=== PATIENT | female | born 1955 | race Caucasian/White ===

== ENCOUNTER → 2018-06-09 | Day surgery (SDC) | payer OTHER ==
[~2018-06-09] MED LIST: LIDOCAINE HCL 2% LOCAL INJ 5 ML SDV VIAL INJ ONE; MIDAZOLAM HCL 2 MG/2 ML VIAL ONE; PROAIR HFA INH8.5 GM INH; PROPOFOL IV EMULSION 10 MG/ML 50 ML VIAL ONE; TRELEGY INH
--- OUTSIDE RECORDS SUMMARY | 2018-06-09 07:14 | XMS REPORT | Encounter Summary ---
Author Organization Unknown Address [address] [place] [address] Phone [phone] Care Team Providers Care Baggage Security Checker Name Role Phone Patrick Bustamante MD 3 [phone] Reason for Visit Medical Complaint Instructions 1. Acute exacerbation of asthma rapid flu (A+B) albuterol sulfate 2.5 mg/3 mL (0.083 %) solution for nebulization call back, wheezing 2. Cigarette smoker 3. Tachycardia Discussion Note Pt is in NAD; Verbalizes understanding of all instructions with no questions at this time. Plan of Care Patient Instructions Based on the nature of your symptoms I recommend transfer to nearest ER immediately for further evaluation and recommendations. Reminders Provider Appointments None recorded. Lab Rapid Flu (A+B) 01/18/2017 [facility] Referral None recorded. Procedures None recorded. Surgeries None recorded. Imaging None recorded. Medications Name Start Date Afluria 7895-5226(PF) 45 mcg (15 mcg x 3)/0.5 mL intramuscular syringe Afluria Quad 1470-6494 (PF) 60 mcg/0.5 mL intramuscular syringe USE DIRECTED albuterol sulfate 2.5 mg/3 mL (0.083 %) solution for nebulization Give 1 inhalation every 20 minutes by nebulizer route as needed amoxicillin 875 mg-potassium clavulanate 125 mg tablet TAKE 1 TABLET BY MOUTH EVERY 12 HOURS DIRECTED FOR 10 DAYS Breo Ellipta 100 mcg-25 mcg/dose powder for inhalation INHALE ONE PUFF BY MOUTH EVERY DAY ujugnrjuxszfmex-cwviyxvgoxfgmwm-TN 2 mg-30 mg-10 mg/5 mL syrup TAKE TWO TEASPOONSFUL BY MOUTH EVERY 4 TO 6 HOURS NEEDED Fluvirin 1220-6177 45 mcg (15 mcg x 3)/0.5 mL intramuscular suspension ADM 0.5ML IM UTD levalbuterol 1.25 mg/3 mL solution for nebulization jfcenrhw-fyjeyzdcc-ywhofmiy 3.5 mg/mL-10,000 unit/mL-0.1% eye drops INSTILL ONE DROP IN LEFT EYE THREE TIMES DAILY DISCONTINUE AFTER 10 DAYS Omnaris 50 mcg nasal spray Pneumovax 23 25 mcg/0.5 mL injection solution ADM 0.5ML IM UTD prednisone 20 mg tablet TAKE 3 TABLETS BY MOUTH EVERY DAY FOR 2 DAYS THEN TAKE 2 TABLETS EVERY DAY FOR 2 DAYS THE TAKE 1 TABLET EVERY DAY FOR 2 DAYS Prevnar 13 (PF) 0.5 mL intramuscular syringe USE DIRECTED ProAir HFA 90 mcg/actuation aerosol inhaler INHALE TWO PUFFS BY MOUTH EVERY 4 TO 6 HOURS NEEDED RETURN TO DR'S OFFICE Spiriva Respimat 2.5 mcg/actuation solution for inhalation INHALE TWO PUFFS BY MOUTH EVERY DAY RETURN TO DR'S OFFICE Medications Administered Name Date albuterol sulfate 2.5 mg/3 mL (0.083 %) solution for nebulization Give 1 inhalation every 20 minutes by nebulizer route as needed [id number] Vitals Height Weight BMI Blood Pressure 5 ft 2 in 94 lbs 17.2 kg/m2 108/68 mm[Hg] Lab Results Date Name Specimen Result Interpretation Description Value Range Status Address Rapid Flu (A+B) Influenza a negative [facility]: [address] [place] [address] Influenza B negative [facility]: [address] [place] [address] Allergies Code Code System Name Reaction Severity Status Onset NKDA Problems Name Status Onset Date Source Acute Upper Respiratory Infection Active Encounter Acute Bronchitis Active Encounter Procedures Date Name Performed by Appendectomy Information not available Removal of Tonsils Information not available Vaccine List Vaccine Type influenza, injectable, quadrivalent 11/09/2015 11/08/2016 pneumococcal conjugate PCV 13 11/08/2016 pneumococcal polysaccharide PPV23 11/09/2015 Social History Smoking Status Current Every Day Smoker Past Encounters 01/18/2017 Acute Exacerbation of Asthma; Cigarette Smoker; Tachycardia Angelica Nicolas, MICROSTRATEGY BI DEVELOPER-C: [address] [place] [address], Ph. History of Present Illness Wheezing / Asthma Reported By: Patient HPI: Symptoms recurrent cough, recurrent wheezing, recurrent shortness of breath, recurrent chest tightness, sputum production. Pattern of symptoms symptoms worse at night, symptoms worse in the morning, continual. Precipitating/Aggravating Factors: smoking patient. Development of disease and treatment progression of disease worse. Family history asthma, allergies. Patient/Family perception of asthma family able to recognize exacerbation, family able to cope with disease, adequate economic resources, sociocultural beliefs support treatment plan Wheezing / Cough Reported By: Patient HPI: Location: chest, nasal/sinus. Quality: congested, dyspnea, tightness, productive cough, colored phlegm, wheezing, can't catch breath, can't get a deep breath. Severity: worsening, moderate. Duration: constant. Onset/Timing: sudden, daily, wakes from sleep. Context: no sick contacts, no foreign travel, smoker, hx of asthma. Modifying factors: inhaler:proair using how often?proair; Breo ellipta BID. Associated Symptoms: no fever, no chills, no sweats, no chest pain, no edema, no heartburn, no significant weight gain, no significant weight loss, no morning cough, no post nasal drip, no sore throat, no nausea, no vomiting, no diarrhea, no rash, no muscle aches, no headache, yellow-green, thick sputum, shortness of breath, wheezing, difficulty breathing at night, fatigue; nasal congestion, rhinorrhea, chest congestion, productive cough, and feeling feverish Review of Systems:ROS as noted in the HPI Review of Systems Basic Reported By: Patient Physical Exam Adult Basic, Adult Female Complete Reported By: Patient Constitutional: General Appearance: healthy-appearing, well-nourished, well-developed. Level of Distress: NAD. Ambulation: ambulating normally Psychiatric: Mental Status: active and alert Eyes: Lids and Conjunctivae: non-injected, no discharge, no pallor Zwd-Shml-Gbqry-Throat: Ears: no lesions on external ear, no outer ear tenderness, EACs clear, TMs clear. Hearing: no hearing loss. Nose: no lesions on external nose. Lips, Teeth, and Gums: no mouth or lip ulcers, no bleeding gums, normal dentition. Oropharynx: moist mucous membranes, no erythema, no exudates, tonsils absent Neck: Lymph Nodes: no cervical LAD Lungs: Respiratory effort: no dyspnea, no tachypnea, no use of accessory muscles, no intercostal retractions. Auscultation: inspiratory wheezing, expiratory wheezing Cardiovascular: Heart Auscultation: no murmurs, tachycardia Neurologic: Gait and Station: normal gait, normal station
--- OUTSIDE RECORDS SUMMARY | 2018-06-09 07:14 | XMS REPORT | Encounter Summary ---
Author Organization Unknown Address [address] [place] [address] Phone [phone] Care Team Providers Care Engineering Writer Name Role Phone Patrick Bustamante MD 3 [phone] Reason for Visit Medical Complaint Instructions 1. Influenza-like symptoms Tamiflu 75 mg capsule rapid flu (A+B) benzonatate 100 mg capsule 2. Cigarette smoker Discussion Note Pt is in NAD; Verbalizes understanding of all instructions with no questions at this time. Patient educational handouts: No information available. Plan of Care Patient Instructions Take fluticasone as needed for congestion. [place] one spray in each nostril twice a day. Take a warm, steamy shower, blow your nose thereafter, and spray in each nostril. Tilt your head up for about 10 seconds and breath through your mouth. Do not sniff or snort the medication in or else the medication will go to your throat and not be absorbed appropriately. Take benzonate for cough as directed. Take Tamiflu (oseltamivir) as directed for the flu. Alternate with Ibuprofen and acetaminophen every 4hrs as needed for pain/fever/headache. Continue your inhalers for asthma management as your PCP's recommendations. Proper hydration and rest. Return to work/school if free of fever for 24-hrs. Do not share any utensils/cups, no kissing, recommend hand washing after coughing/sneezing/blowing nose and cover face when you do so. Take medications as prescribed. Return to clinic or follow up with your PCP within 2-3 days if symptoms worsen as discussed. I recommend smoking cessation. Reminders Provider Appointments None recorded. Lab Rapid Flu (A+B) 02/24/2017 [facility] Referral None recorded. Procedures None recorded. Surgeries None recorded. Imaging None recorded. Medications Name Start Date Afluria 0131-5498(PF) 45 mcg (15 mcg x 3)/0.5 mL intramuscular syringe Afluria Quad 8751-1484 (PF) 60 mcg/0.5 mL intramuscular syringe USE DIRECTED albuterol sulfate 2.5 mg/3 mL (0.083 %) solution for nebulization Give 1 inhalation every 20 minutes by nebulizer route as needed benzonatate 100 mg capsule Take 1 capsule 3 times a day by oral route as needed. Breo Ellipta 100 mcg-25 mcg/dose powder for inhalation INHALE ONE PUFF BY MOUTH EVERY DAY Fluvirin 45 mcg (15 mcg x 3)/0.5 mL intramuscular suspension ADM 0.5ML IM UTD Omnaris 50 mcg nasal spray Pneumovax 23 25 mcg/0.5 mL injection solution ADM 0.5ML IM UTD Prevnar 13 (PF) 0.5 mL intramuscular syringe USE DIRECTED ProAir HFA 90 mcg/actuation aerosol inhaler INHALE 2 PUFFS BY MOUTH EVERY 4 TO 6 HOURS NEEDED Spiriva Respimat 2.5 mcg/actuation solution for inhalation INHALE TWO PUFFS BY MOUTH EVERY DAY RETURN TO DR'S OFFICE Tamiflu 75 mg capsule Take 1 capsule every day by oral route as directed for 10 days. Medications Administered None recorded. Vitals Height Weight BMI Blood Pressure 5 ft 2 in 90 lbs 16.5 kg/m2 96/66 mm[Hg] Lab Results Date Name Specimen Result Interpretation Description Value Range Status Address Rapid Flu (A+B) Influenza a negative [facility]: [address] [place] [address] Influenza B negative [facility]: [address] [place] [address] Allergies Code Code System Name Reaction Severity [...] Status Current Every Day Smoker Past Encounters 02/24/2017 Influenza-like Symptoms; Cigarette Smoker Angelica Nicolas, ANTONINO-C: [address] [facility], [place] [address], Ph. History of Present Illness Buqynzr-Ayfsk-Avo Reported By: Patient HPI: Quality: symptoms worse during the day. Duration: 1 days. Severity: subjective temperature. Context: no ill contacts, no tick/insect bites, no recent travel, no new medications; Pt reports possible exposure to influenza. Pt is afebrile. She has h/o asthma and is a cigarette smoker. She is not interested in smoking cessation today. On her last visit she was instructed to go to the ER and EMS was called but pt refused transport. She reports she went home that day and she declined thus her has to eventually take her to the ER. The day after her ER visit she ended up seeing her PCP and a day after that f/u she had another ER visit d/t worsening symptoms. Pt is in no respiratory distress today. Associated Symptoms: no headache, no muscle aches, no rash, no lethargy, fever/chills, cough; chest congestion, productive cough, and body aches. Modifying Factors nothing gives relief Review of Systems:ROS as noted in the HPI Review of Systems Basic Reported By: Patient Physical Exam Adult Basic, Adult Female Complete Reported By: Patient Constitutional: General Appearance: healthy-appearing, too thin. Level of Distress: NAD. Ambulation: ambulating normally Psychiatric: Mental Status: active and alert. Orientation: to time, to place, to person Tdl-Dvjf-Cbadl-Throat: Ears: no lesions on external ear, no outer ear tenderness, EACs clear, TMs clear. Hearing: no hearing loss. Nose: no lesions on external nose, nares patent, no septal deviation, nasal passages clear, no sinus tenderness, nasal discharge--rhinorrhea, post nasal drip. Lips, Teeth, and Gums: no mouth or lip ulcers, no bleeding gums, normal dentition. Oropharynx: moist mucous membranes, no erythema, no exudates, tonsils absent Neck: Lymph Nodes: no cervical LAD Lungs: Respiratory effort: no dyspnea, no tachypnea, no use of accessory muscles, no intercostal retractions. Auscultation: breath sounds normal Cardiovascular: Heart Auscultation: RRR, no murmurs Neurologic: Gait and Station: normal gait, normal station
--- OUTSIDE RECORDS SUMMARY | 2018-06-09 07:14 | XMS REPORT | Encounter Summary ---
Author Organization Unknown Address [address] [place] [address] Phone [phone] Care Team Providers Care Patrol Agent Name Role Phone Patrick Bustamante MD 3 [phone] Reason for Visit Medical Complaint Instructions 1. Acute bronchitis bronchitis: care instructions prednisone 20 mg tablet amoxicillin 875 mg-potassium clavulanate 125 mg tablet Bromfed DM 2 mg-30 mg-10 mg/5 mL syrup rapid flu (A+B) Discussion Note Pt is in NAD; Verbalizes understanding of all instructions with no questions at this time. Plan of Care Patient Instructions Start fluticasone as needed for nasal congestion and runny nose. [place] one spray in each nostril twice a day. Take a warm, steamy shower, blow your nose thereafter, and spray in each nostril. Tilt your head up for about 10 seconds and breath through your mouth. Do not sniff or snort the medication in or else the medication will go to your throat and not be absorbed appropriately. Continue ProAir inhaler 2 puffs every 4-6 hrs as needed for shortness of breath/wheezing and alternate with Levalbuterol nebulizer treatment every 4-6 hrs. Do not do both medications at the same time. Start Bromfed DM for cough as directed. Start Prednisone (steroid taper) and used a per package insert. Start antibiotics as directed. Take medications as prescribed and follow up with a PCP within 2-3 if symptoms worsen as discussed. In case of emergency: worsening chest tightness, chest pain, worsening shortness of breath or difficulty breathing call 911 or go to nearest ER. Reminders Provider Appointments None recorded. Lab Rapid Flu (A+B) 10/30/2016 [facility] Referral None recorded. Procedures None recorded. Surgeries None recorded. Imaging None recorded. Medications Name Start Date Afluria 1051-9732(PF) 45 mcg (15 mcg x 3)/0.5 mL intramuscular syringe amoxicillin 875 mg-potassium clavulanate 125 mg tablet Take 1 tablet every 12 hours by oral route as directed for 10 days. Breo Ellipta 100 mcg-25 mcg/dose powder for inhalation INHALE ONE PUFF BY MOUTH EVERY DAY Bromfed DM 2 mg-30 mg-10 mg/5 mL syrup Take 10 mL every 4-6 hours by oral route as needed for 6 days. Fluvirin 8857-4375 45 mcg (15 mcg x 3)/0.5 mL intramuscular suspension ADM 0.5ML IM UTD levalbuterol 1.25 mg/3 mL solution for nebulization Omnaris 50 mcg nasal spray Pneumovax 23 25 mcg/0.5 mL injection solution ADM 0.5ML IM UTD prednisone 20 mg tablet Take 60 mg PO QD x 2 days, then take 40 mg PO QD x 2 days, then take 20 mg PO QD x 2 days. ProAir HFA 90 mcg/actuation aerosol inhaler INHALE TWO PUFFS BY MOUTH EVERY 4 TO 6 HOURS NEEDED RETURN TO DR'S OFFICE Spiriva Respimat 2.5 mcg/actuation solution for inhalation Medications Administered None recorded. Vitals Height Weight BMI Blood Pressure 5 ft 2 in 94 lbs 17.2 kg/m2 125/70 mm[Hg] Lab Results Date Name Specimen Result Interpretation Description Value Range Status Address Rapid Flu (A+B) Influenza a negative [facility]: [address] [place] [address] Influenza B negative [facility]: [address] [place] [address] Allergies Code Code System Name Reaction Severity Status Onset NKDA Problems Name Status Onset Date Source Acute Upper Respiratory Infection Active Encounter Acute Bronchitis Active Encounter Procedures Date Name Performed by Appendectomy Information not available Removal of Tonsils Information not available Vaccine List Vaccine Type influenza, injectable, quadrivalent 11/09/2015 pneumococcal polysaccharide PPV23 11/09/2015 Social History Smoking Status Current Every Day Smoker Past Encounters 10/30/2016 Acute Bronchitis Angelica Nicolas, PLATE WORKER HELPER-C: [address] [place] [address], Ph. History of Present Illness Cough Reported By: Patient HPI: Location: chest, nasal/sinus. Quality: productive cough, congested, wheezy cough. Duration: 4 days. Severity: moderate. Onset/Timing: gradual. Context: no sick contacts, no foreign travel, smoker, allergies, asthma. Associated Symptoms: no sweats, no significant weight gain, no significant weight loss, no morning cough, no sore throat, no vomiting, no diarrhea, no rash, no nausea, no fever/chills, no muscle aches, no headache, yellow-green, thick sputum, shortness of breath, wheezing; nasal congestion, rhinorrhea, chest congestion, and feeling feverish Review of Systems:ROS as noted in the HPI Review of Systems Basic Reported By: Patient Physical Exam Adult Basic, Adult Female Complete Reported By: Patient Constitutional: General Appearance: healthy-appearing, well-nourished, well-developed. Level of Distress: NAD. Ambulation: ambulating normally Psychiatric: Mental Status: active and alert Eyes: Lids and Conjunctivae: non-injected, no discharge, no pallor Tvh-Wqam-Jnhot-Throat: Ears: no lesions on external ear, no [...] of accessory muscles, no intercostal retractions. Auscultation: expiratory wheezing Cardiovascular: Heart Auscultation: RRR, no murmurs Neurologic: Gait and Station: normal gait, normal station
--- OUTSIDE RECORDS SUMMARY | 2018-06-09 07:14 | XMS REPORT | Continuity of Care Document ---
Author Author [facility] Interface Address Unknown Phone Unavailable Problems Problem Status Onset Date Classification Date Reported Comments Source Upper respiratory infection 04/13/2017 Diagnosis 04/13/2017 [facility] Cough 04/13/2017 Diagnosis 04/13/2017 [facility] Posterior rhinorrhea 04/13/2017 Diagnosis 04/13/2017 [facility] Cigarette smoker 02/24/2017 Diagnosis 02/24/2017 [facility] Influenza-like symptoms 02/24/2017 Diagnosis 02/24/2017 [facility] Acute exacerbation of asthma 01/18/2017 Diagnosis 01/18/2017 [facility] Tachycardia 01/18/2017 Diagnosis 01/18/2017 [facility] Acute bronchitis 10/30/2016 Diagnosis 10/30/2016 [facility] Acute sinusitis 06/11/2016 Diagnosis 06/11/2016 [facility] Acute Upper Respiratory Infection Problem 02/24/2017 [facility] Acute Bronchitis Problem 04/13/2017 [facility] Medications Medication Details Route Status Patient Instructions Ordering Provider Order Date Source 0.5 ML Influenza Virus Vaccine, Inactivated Q-Cdbjxachfe-31-2009 X-179A (H1N1) strain 0.03 MG/ML / Influenza Virus Vaccine, Inactivated T-Xhkgrocz-151-2009 X-187 (H3N2) (O-Ptvvs-10-2009) strain 0.03 MG/ML / Influenza Virus Vaccine, Inactivated B-Ctyfcwvf-30-2008 strain 0.03 MG/ML Prefilled Syringe Afluria 4731-2931(PF) 45 mcg (15 mcg x 3)/0.5 mL intramuscular syringe Active [facility] 0.5 ML influenza A virus A/[facility]/ (H3N2) antigen 0.03 MG/ML / influenza A virus A/[place]/ (H1N1) antigen 0.03 MG/ML / influenza B virus B/[place] antigen 0.03 MG/ML / influenza B virus B/[facility] antigen 0.03 MG/ML Prefilled Syringe [Afluria Quadrivalent ] Afluria Quad (PF) 60 mcg/0.5 mL intramuscular syringe USE DIRECTED Active [facility] Albuterol 0.83 MG/ML Inhalant Solution albuterol sulfate 2.5 mg/3 mL (0.083 %) solution for nebulization Give 1 inhalation every 20 minutes by nebulizer route as needed Active [facility] Amoxicillin 875 MG / Clavulanate 125 MG Oral Tablet amoxicillin 875 mg-potassium clavulanate 125 mg tablet TAKE 1 TABLET BY MOUTH EVERY 12 HOURS DIRECTED FOR 10 DAYS Active [facility] fluticasone furoate 0.1 MG/ACTUAT / vilanterol 0.025 MG/ACTUAT Dry Powder Inhaler Breo Ellipta 100 mcg-25 mcg/dose powder for inhalation INHALE ONE PUFF BY MOUTH EVERY DAY Active [facility] Brompheniramine Maleate 0.4 MG/ML / Dextromethorphan Hydrobromide 2 MG/ML / Pseudoephedrine Hydrochloride 6 MG/ML Oral Solution sqpxbkoswodokxz-vcexupbakwqwdio-LD 2 mg-30 mg-10 mg/5 mL syrup TAKE TWO TEASPOONSFUL BY MOUTH EVERY 4 TO 6 HOURS NEEDED Active [facility] influenza A virus A/[facility] (H1N1) antigen 0.03 MG/ML / influenza A virus A/ (H3N2) antigen 0.03 MG/ML / influenza B virus B/ antigen 0.03 MG/ML Injectable Suspension [Fluvirin 0102-8970] Fluvirin 8345-1819 45 mcg (15 mcg x 3)/0.5 mL intramuscular suspension ADM 0.5ML IM UTD Active [facility] Levalbuterol 0.417 MG/ML Inhalant Solution levalbuterol 1.25 mg/3 mL solution for nebulization Active [facility] Dexamethasone 1 MG/ML / Neomycin 3.5 MG/ML / Polymyxin B 73977 UNT/ML Ophthalmic Suspension eraswvoy-ozvymqsfo-vvrrnqgl 3.5 mg/mL-10,000 unit/mL-0.1% eye drops INSTILL ONE DROP IN LEFT EYE THREE TIMES DAILY DISCONTINUE AFTER 10 DAYS Active [facility] ciclesonide 0.05 MG/ACTUAT Metered Dose Nasal [place] [Omnaris] Omnaris 50 mcg nasal spray Active [facility] pneumococcal capsular polysaccharide type 1 vaccine 0.05 MG/ML / pneumococcal capsular polysaccharide type 10A vaccine 0.05 MG/ML / pneumococcal capsular polysaccharide type 11A vaccine 0.05 MG/ML / pneumococcal capsular polysaccharide type 12F vaccine 0.05 MG/ML / pneumococcal capsular polysaccharide type 14 vaccine 0.05 MG/ML / pneumococcal capsular polysaccharide type 15B vaccine 0.05 MG/ML / pneumococcal capsular polysaccharide type 17F vaccine 0.05 MG/ML / pneumococcal capsular polysaccharide type 18C vaccine 0.05 MG/ML / pneumococcal capsular polysaccharide type 19A vaccine 0.05 MG/ML / pneu mococcal capsular polysaccharide type 19F vaccine 0.05 MG/ML / pneumococcal capsular polysaccharide type 2 vaccine 0.05 MG/ML / pneumococcal capsular polysaccharide type 20 vaccine 0.05 MG/ML / pneumococcal capsular polysaccharide type 22F vaccine 0.05 MG/ML / pneumococcal capsular polysaccharide type 23F vaccine 0.05 MG/ML / pneumococcal capsular polysaccharide type 3 vaccine 0.05 MG/ML / pneumococcal capsular polysaccharide type 33F vaccine 0.05 MG/ML / pneumococcal capsular polysaccharide type 4 vaccine 0.05 MG/ML / pneumococcal capsular polysaccharide type 5 vaccine 0.05 MG/ML / pneumococcal capsular polysaccharide type 6B vaccine 0.05 MG/ML / pneumococcal capsular polysaccharide type 7F vaccine 0.05 MG/ML / pneumococcal capsular polysaccharide type 8 vaccine 0.05 MG/ML / pneumococcal capsular polysaccharide type 9N vaccine 0.05 MG/ML / pneumococcal capsular polysaccharide type 9V vaccine 0.05 MG/ML Injectable Solution [Pneumovax 23] Pneumovax 23 25 mcg/0.5 mL injection solution ADM 0.5ML IM UTD Active [facility] Prednisone 20 MG Oral Tablet prednisone 20 mg tablet TAKE 3 TABLETS BY MOUTH EVERY DAY FOR 2 DAYS THEN TAKE 2 TABLETS EVERY DAY FOR 2 DAYS THE TAKE 1 TABLET EVERY DAY FOR 2 DAYS Active [facility] 0.5 ML Streptococcus pneumoniae serotype 1 capsular antigen diphtheria [id number] protein conjugate vaccine 0.0044 MG/ML / Streptococcus pneumoniae serotype 14 capsular antigen diphtheria GSY325 protein conjugate vaccine 0.0044 MG/ML / Streptococcus pneumoniae serotype 18C capsular antigen diphtheria [id number] protein conjugate vaccine 0.0044 MG/ML / Streptococcus pneumoniae serotype 19A capsular antigen d iphtheria CML075 protein conjugate vaccine 0.0044 MG/ML / Streptococcus pneumoniae serotype 19F capsular antigen diphtheria [id number] protein conjugate vaccine 0.0044 MG/ML / Streptococcus pneumoniae serotype 23F capsular antigen diphtheria [id number] protein conjugate vaccine 0.0044 MG/ML / Streptococcus pneumoniae serotype 3 capsular antigen diphtheria BQG083 protein conjugate vaccine 0.0044 MG/ML / Streptococcus pneumoniae serotype 4 capsular antigen diphtheria PJY012 protein conjugate vaccine 0.0044 MG/ML / Streptococcus pneumoniae serotype 5 capsular antigen diphtheria HOA658 protein conjugate vaccine 0.0044 MG/ML / Streptococcus pneumoniae serotype 6A capsular antigen diphtheria QAW003 protein conjugate vaccine 0.0044 MG/ML / Streptococcus pneumoniae serotype 6B capsular antigen diphtheria [id number] protein conjugate vaccine 0.0088 MG/ML / Streptococcus pneumoniae serotype 7F capsular antigen diphtheria [id number] protein conjugate vaccine 0.0044 MG/ML / Streptococcus pneumoniae serotype 9V capsular antigen diphtheria GPE555 protein conjugate vaccine 0.0044 MG/ML Prefilled Syringe [Prevnar 13] Prevnar 13 (PF) 0.5 mL intramuscular syringe USE DIRECTED Active [facility] 200 ACTUAT Albuterol 0.09 MG/ACTUAT Metered Dose Inhaler [ProAir] ProAir HFA 90 mcg/actuation aerosol inhaler INHALE 2 PUFFS BY MOUTH EVERY 4 TO 6 HOURS NEEDED Active [facility] tiotropium 0.0025 MG/ACTUAT Metered Dose Inhaler Spiriva Respimat 2.5 mcg/actuation solution for inhalation INHALE TWO PUFFS BY MOUTH EVERY DAY RETURN TO DR'S OFFICE Active [facility] Amoxicillin 500 MG / Clavulanate 125 MG Oral Tablet amoxicillin 500 mg-potassium clavulanate 125 mg tablet Active [facility] Amoxicillin 875 MG / Clavulanate 125 MG Oral Tablet [Augmentin] Augmentin 875 mg-125 mg tablet Take 1 tablet every 12 hours by oral route with meals for 10 days. Active [facility] ibandronic acid 150 MG Oral Tablet [Boniva] Boniva 150 mg tablet Active [facility] Brompheniramine Maleate 0.4 MG/ML / Dextromethorphan Hydrobromide 2 MG/ML / Pseudoephedrine Hydrochloride 6 MG/ML Oral Solution [Bromfed DM] Bromfed DM 2 mg-30 mg-10 mg/5 mL syrup Take 10 mL every 4-6 hours by oral route as needed for 6 days. Active [facility] Brompheniramine Maleate 4 MG / Dextromethorphan Hydrobromide 20 MG / Pseudoephedrine Hydrochloride 40 MG Oral Tablet BroveX PSE DM 4 mg-40 mg- 20 mg tablet Active [facility] Chlorpheniramine Maleate 0.8 MG/ML / Dextromethorphan Hydrobromide 3 MG/ML / Phenylephrine Hydrochloride 2.5 MG/ML Oral Solution CONCHITA-DM 4 mg-12.5 mg-15 mg/5 mL syrup Take 5 mL every 6 hours by oral route as needed for daytime cough and congestion. Active [facility] 120 ACTUAT formoterol fumarate 0.005 MG/ACTUAT / mometasone furoate 0.2 MG/ACTUAT Metered Dose Inhaler [Dulera] Dulera 200 mcg-5 mcg/actuation HFA aerosol inhaler Active [facility] Prednisone 10 MG Oral Tablet prednisone 10 mg tablet Active [facility] Dextromethorphan Hydrobromide 3 MG/ML / Promethazine Hydrochloride 1.25 MG/ML Oral Solution promethazine-DM 6.25 mg-15 mg/5 mL syrup Take 5 mL every 6 hours by oral route as needed for night cough. Active [facility] tramadol hydrochloride 50 MG Oral Tablet tramadol 50 mg tablet Active [facility] benzonatate 100 MG Oral Capsule [Tessalon Perles] Tessalon Perles 100 mg capsule Take 1 capsule 3 times a day by oral route as needed for 7 days. Active [facility] Azithromycin 250 MG Oral Tablet Zithromax Z-Jay 250 mg tablet TAKE 2 TABLETS (500 MG) BY ORAL ROUTE ONCE DAILY FOR 1 DAY THEN 1 TABLET (250 MG) BY ORAL ROUTE ONCE DAILY FOR 4 DAYS Active [facility] benzonatate 100 MG Oral Capsule benzonatate 100 mg capsule Take 1 capsule 3 times a day by oral route as needed. Active [facility] Oseltamivir 75 MG Oral Capsule [Tamiflu] Tamiflu 75 mg capsule Take 1 capsule every day by oral route as directed for 10 days. Active [facility] Allergies, Adverse Reactions, Alerts Substance Category Reaction Severity Reaction type Status Date Reported Comments Source Immunizations Immunization Date Given Site Status Last Updated Comments Source pneumococcal conjugate PCV 13 11/08/2016 completed [facility] influenza, injectable, quadrivalent 11/08/2016 completed [facility] pneumococcal polysaccharide PPV23 11/09/2015 completed [facility] influenza, injectable, quadrivalent 11/09/2015 completed [facility] Results Order Name Results Value Reference Range Date Interpretation Comments Source Influenza A negative 02/24/2017 [facility] Influenza B negative 02/24/2017 [facility] Influenza A negative 01/18/2017 [facility] Influenza B negative 01/18/2017 [facility] Influenza A negative 10/30/2016 [facility] Influenza B negative 10/30/2016 [facility] Vital Signs Vital Sign Value Date Comments Source Diastolic (mm Hg) 70 04/13/2017 [facility] Height 62 04/13/2017 [facility] Systolic (mm Hg) 110 04/13/2017 [facility] Weight 90 04/13/2017 [facility] Diastolic (mm Hg) 66 02/24/2017 [facility] Height 62 02/24/2017 [facility] Systolic (mm Hg) 96 02/24/2017 [facility] Weight 90 02/24/2017 [facility] Diastolic (mm Hg) 68 01/18/2017 [facility] Height 62 01/18/2017 [facility] Systolic (mm Hg) 108 01/18/2017 [facility] Weight 94 01/18/2017 [facility] Diastolic (mm Hg) 70 10/30/2016 [facility] Height 62 10/30/2016 [facility] Systolic (mm Hg) 125 10/30/2016 [facility] Weight 94 10/30/2016 [facility] Diastolic (mm Hg) 80 06/11/2016 [facility] Height 62 06/11/2016 [facility] Systolic (mm Hg) 118 06/11/2016 [facility] Weight 94 06/11/2016 [facility] Encounters Location Location Details Encounter Type Encounter Number Reason For Visit Attending Provider ADM Date DC Date Status Source [place] - [facility] - [id number] ANTONINO Morton-C: [address] [place] [address], Ph. [phone] [id number] You Cyr 06/11/2016 [facility] [place] [facility] - [id number] Sherman-C: [address] [place] [address], Ph. [id number] Angelica Nicolas 10/30/2016 [facility] [place] - [facility] - [id number] [place], RESEARCH METHODS INSTRUCTOR-C: [address] [place] [address], Ph. [id number] Angelica Reddingroy 01/18/2017 [facility] [place] [facility] - [id number] Angela Maria Isabel, RESEARCH METHODS INSTRUCTOR-C: [address] [place] [address], Ph. [id number] Angelica Nicolas 02/24/2017 [facility] [place] - [facility] - [id number] Kaye Villalta, RESEARCH METHODS INSTRUCTOR-C: [address] [place] [address], Ph. [id number] Kaye Villalta 04/13/2017 [facility] Procedures Procedure Code Date Perfomer Comments Source Appendectomy [facility] Removal of Tonsils 31784 [facility] Removal of Tonsils [facility]
--- OUTSIDE RECORDS SUMMARY | 2018-06-09 07:15 | XMS REPORT | Encounter Summary ---
Author Organization Unknown Address [address] [place] [address] Phone [phone] Care Team Providers Care Short Order Fry Cook Name Role Phone Patrick Bustamante MD 3 [phone] Reason for Visit Medical Complaint Instructions 1. Acute sinusitis sinusitis: care instructions Augmentin 875 mg-125 mg tablet Bromfed DM 2 mg-30 mg-10 mg/5 mL syrup Discussion Note: None recorded. Plan of Care Patient Instructions consider a trial of flonase and zyrtec if you havent already. may start on antibiotics in 4-5 days if not better. follow up pcp Reminders Provider Appointments None recorded. Lab None recorded. Referral None recorded. Procedures None recorded. Surgeries None recorded. Imaging None recorded. Medications Name Start Date Afluria 3786-1662(PF) 45 mcg (15 mcg x 3)/0.5 mL intramuscular syringe amoxicillin 500 mg-potassium clavulanate 125 mg tablet Augmentin 875 mg-125 mg tablet Take 1 tablet every 12 hours by oral route with meals for 10 days. Boniva 150 mg tablet Breo Ellipta 100 mcg-25 mcg/dose powder for inhalation INHALE ONE PUFF BY MOUTH EVERY DAY Bromfed DM 2 mg-30 mg-10 mg/5 mL syrup Take 10 mL every 4 hours by oral route as needed. BroveX PSE DM 4 mg-40 mg-20 mg tablet CONCHITA-DM 4 mg-12.5 mg-15 mg/5 mL syrup Take 5 mL every 6 hours by oral route as needed for daytime cough and congestion. Dulera 200 mcg-5 mcg/actuation HFA aerosol inhaler Fluvirin 4679-1598 45 mcg (15 mcg x 3)/0.5 mL intramuscular suspension ADM 0.5ML IM UTD levalbuterol 1.25 mg/3 mL solution for nebulization Omnaris 50 mcg nasal spray Pneumovax 23 25 mcg/0.5 mL injection solution ADM 0.5ML IM UTD prednisone 10 mg tablet ProAir HFA 90 mcg/actuation aerosol inhaler INHALE TWO PUFFS BY MOUTH EVERY 4 TO 6 HOURS NEEDED promethazine-DM 6.25 mg-15 mg/5 mL syrup Take 5 mL every 6 hours by oral route as needed for night cough. Spiriva Respimat 2.5 mcg/actuation solution for inhalation tramadol 50 mg tablet Medications Administered None recorded. Vitals Height Weight BMI Blood Pressure 5 ft 2 in 94 lbs 17.2 118/80 Lab Results None recorded. Allergies Code Code System Name Reaction Severity Onset NKDA Problems Name Status Onset Date Source Acute Upper Respiratory Infection Active Encounter Acute Bronchitis Active Encounter Procedures Date Name Performed by Appendectomy Information not available Removal of Tonsils Information not available Vaccine List Vaccine Type influenza, injectable, quadrivalent 11/08/2015 pneumococcal polysaccharide PPV23 11/08/2015 Social History Smoking Status Current Every Day Smoker Past Encounters 06/11/2016 Acute Sinusitis You Cyr, STUDENT SERVICES COORDINATOR-C: [address] [place] [address], Ph. History of Present Illness Afayj-Koxjsqzjom-Gfgmumz Reported By: Patient HPI: Location: head/sinuses. Quality: nasal/sinus congestion, dry cough. Duration: 2days. Severity: moderate. Onset/Timing: gradual. Context: no sick contacts, no foreign travel, non-smoker. Modifying factors: OTC medication. Associated Symptoms: no sputum production, no shortness of breath, no wheezing, no change in number of pillows needed to sleep at night, no sweats, no significant weight gain, no significant weight loss, no morning cough, no sore throat, no vomiting, no diarrhea, no rash, no nausea, no fever, no muscle aches, no headache Review of Systems:ROS as noted in the HPI Review of Systems Basic Reported By: Patient Physical Exam Adult Basic, Adult Female Complete Reported By: Patient Constitutional: General Appearance: healthy-appearing, well-nourished, well-developed. Level of Distress: NAD. Ambulation: ambulating normally Psychiatric: Mental Status: active and alert Eyes: Lids and Conjunctivae: non-injected, no discharge Fan-Selh-Vhsjd-Throat: Ears: no lesions on external ear, no outer ear tenderness, EACs clear, TMs clear. Nose: no lesions on external nose, sinus tenderness, nasal discharge--purulent; congestion. Lips, Teeth, and Gums: no mouth or lip ulcers. Oropharynx: moist mucous membranes, no erythema, no exudates, tonsils not enlarged Neck: Neck: trachea midline. Lymph Nodes: no cervical LAD Lungs: Respiratory effort: no dyspnea, no tachypnea, no use of accessory muscles, no intercostal retractions. Percussion: no dullness, flatness, or hyperresonance. Auscultation: breath sounds normal Cardiovascular: Heart Auscultation: RRR, no murmurs
--- OUTSIDE RECORDS SUMMARY | 2018-06-09 07:15 | XMS REPORT | Encounter Summary ---
Author Organization Unknown Address [address] [place] [address] Phone [phone] Care Team Providers Care Bend Sorter Name Role Phone Patrick Bustamante MD 3 [phone] Reason for Visit Medical Complaint Instructions 1. Upper respiratory infection upper respiratory infection (cold): care instructions Zithromax Z-Jay 250 mg tablet 2. Cough cough: care instructions Tessalon Perles 100 mg capsule 3. Posterior rhinorrhea Discussion Note: None recorded. Plan of Care Patient Instructions F/U with your PCP within 3-5 days if needed, or ER if s/s continue or worsen. Handouts, including Take Charge of your Health, were given and reviewed. Side effects of medication discussed. Pt verbalized understanding. Reminders Provider Appointments None recorded. Lab None recorded. Referral None recorded. Procedures None recorded. Surgeries None recorded. Imaging None recorded. Medications Name Start Date Afluria 8255-0422(PF) 45 mcg (15 mcg x 3)/0.5 mL [facility]uscular [facility] 5691-1565 (PF) 60 mcg/0.5 mL intramuscular syringe USE DIRECTED albuterol sulfate 2.5 mg/3 mL (0.083 %) solution for nebulization Give 1 inhalation every 20 minutes by nebulizer route as needed Breo Ellipta 100 mcg-25 mcg/dose powder for inhalation INHALE ONE PUFF BY MOUTH EVERY DAY levalbuterol 1.25 mg/3 mL solution for nebulization Omnaris 50 mcg nasal spray ProAir HFA 90 mcg/actuation aerosol inhaler INHALE 2 PUFFS BY MOUTH EVERY 4 TO 6 HOURS NEEDED Spiriva Respimat 2.5 mcg/actuation solution for inhalation INHALE TWO PUFFS BY MOUTH EVERY DAY RETURN TO DR'S OFFICE Tessalon Perles 100 mg capsule Take 1 capsule 3 times a day by oral route as needed for 7 days. Zithromax Z-Jay 250 mg tablet TAKE 2 TABLETS (500 MG) BY ORAL ROUTE ONCE DAILY FOR 1 DAY THEN 1 TABLET (250 MG) BY ORAL ROUTE ONCE DAILY FOR 4 DAYS Medications Administered None recorded. Vitals Height Weight BMI Blood Pressure 5 ft 2 in 90 lbs 16.5 kg/m2 110/70 mm[Hg] Lab Results None recorded. Allergies Code Code System Name Reaction Severity Status Onset NKDA Problems Name Status Onset Date Source Acute Bronchitis Active Encounter Procedures Date Name Performed by Appendectomy Information not available Removal of Tonsils Information not available Vaccine List Vaccine Type influenza, injectable, quadrivalent 11/09/2015 11/08/2016 pneumococcal conjugate PCV 13 11/08/2016 pneumococcal polysaccharide PPV23 11/09/2015 Social History Smoking Status Current Every Day Smoker Past Encounters 04/13/2017 Upper Respiratory Infection; Cough; Posterior Rhinorrhea Kaye Villalta, [facility]-C: [address] [place] [address], Ph. History of Present Illness Vceur-Cmyodmldqb-Ymodxli Reported By: Patient HPI: Location: head/sinuses, chest. Quality: productive cough, nasal/sinus congestion. Duration: 5days. Severity: moderate. Onset/Timing: gradual. Context: no sick contacts, no foreign travel, non-smoker. Modifying factors: ; using rx inhalers as prescribed, used rescue inhaler yesterday x2 and neb txt x1. Associated Symptoms: no shortness of breath, no wheezing, no change in number of pillows needed to sleep at night, no sweats, no significant weight gain, no significant weight loss, no morning cough, no sore throat, no vomiting, no diarrhea, no rash, no nausea, no fever, no muscle aches, no headache, yellow sputum Note:started nasal congestion, cough, yellow mucus x 4 days Review of Systems:ROS as noted in the HPI Review of Systems Basic Reported By: Patient Physical Exam Adult Basic, Adult Female Complete Reported By: Patient Constitutional: General Appearance: healthy-appearing, well-nourished, well-developed. Level of Distress: NAD. Ambulation: ambulating normally Psychiatric: Mental Status: active and alert. Orientation: to time, to place, to person Eyes: Lids and Conjunctivae: non-injected, no discharge, no pallor. Pupils: PERRLA. Corneas: grossly intact. EOM: EOMI. Lens: clear. Sclerae: non-icteric. Vision: acuity grossly intact Uhn-Hhru-Hnwpu-Throat: Ears: no lesions on external ear, no [...] no exudates, tonsils not enlarged Neck: Neck: supple, trachea midline, no masses, FROM. Lymph Nodes: no cervical LAD Lungs: Respiratory effort: no dyspnea, no tachypnea, no use of accessory muscles, no intercostal retractions. Auscultation: breath sounds normal Cardiovascular: Heart Auscultation: RRR, no murmurs Musculoskeletal:: Motor Strength and Tone: normal motor strength, normal tone Neurologic: Gait and Station: normal gait, normal station Skin: Inspection and palpation: no rash, no lesions, no ulcer, no abnormal nevi, no induration, no nodules, good turgor, no jaundice. Nails: normal
[2018-06-09 10:25] VITALS: BP 125/80
--- NOTE | 2018-06-09 16:45 | Operative Report ---
DATE OF PROCEDURE: 06/09/2018 SURGEON: Florentino Jeter MD PROCEDURE: Colonoscopy and polypectomy. INDICATION FOR COLONOSCOPY: Surveillance colonoscopy, personal history of colon polyps. MEDICATIONS: The patient was done under MAC, please see anesthesiologist's note. PROCEDURE IN DETAIL: With the patient in left lateral decubitus position, flexible fiberoptic Olympus colonoscope was inserted into the rectum with ease and advanced all the way to the cecum. One polyp was removed with a cold biopsy forceps from the cecum. The ascending colon appeared to be within normal limits. One polyp was hot biopsied and site was hemoclipped and two polyps were snared in the transverse colon. The descending grossly appeared to be within normal limits. Some minimal diverticulosis was noted in the sigmoid colon. One polyp was snared and two polyps were hot biopsied from the sigmoid colon. Seven polyps were snared and six polyps were hot biopsied from the rectum. The scope was then retroflexed into the distal rectum and small internal hemorrhoids were noted, none of which was actively bleeding. The scope was then straightened out, it was subsequently withdrawn. The patient tolerated procedure well. IMPRESSION: 1. Cecal polyp removed per cold biopsy forceps. 2. Transverse colon polyps x3, one hot biopsied and polypectomy site hemoclipped and two were snared. 3. Sigmoid colon polyps x3, one snared and two hot biopsied. 4. Diverticulosis, minimal sigmoid colon. 5. Rectal polyps x13, seven snared and six hot biopsied. 6. Internal hemorrhoids, none actively bleeding. A total of 20 polyps were removed. PLAN: Follow up histology. Initiate high-fiber, low-fat diet. Initiate high-fiber supplement. The patient will need a followup colonoscopy in one year. Florentino Jeter MD [facility] [place]/MODL /[id number] cc: Patrick Bustamante MD
== END | disposition home or self-care (01) ==
LOC: OR 06:30
PROVIDERS: ATTEND Internal Medicine Gastroenterology
DX: Z09 Encounter for follow-up examination after completed treatment for conditions other than malignant neoplasm (principal); D12.0 Benign neoplasm of cecum; D12.3 Benign neoplasm of transverse colon; D12.5 Benign neoplasm of sigmoid colon; K62.1 Rectal polyp; K57.30 Diverticulosis of large intestine without perforation or abscess without bleeding; K64.8 Other hemorrhoids; J44.9 Chronic obstructive pulmonary disease, unspecified; F17.210 Nicotine dependence, cigarettes, uncomplicated; Z01.810 Encounter for preprocedural cardiovascular examination; Z68.1 Body mass index [BMI] 19.9 or less, adult
CPT/HCPCS: 45380; 45384; 45385; 93005; J2001; J2250; J2704; 45378

== ENCOUNTER 2021-12-13 22:02 | Inpatient (IN) | payer MEDICARE, OTHER ==
[~2021-12-13] VITALS: Ht 157.5 cm; Wt 41.4 kg
[~2021-12-13 22:02] MED LIST changes: -LIDOCAINE HCL 2% LOCAL INJ 5 ML SDV VIAL INJ ONE; -MIDAZOLAM HCL 2 MG/2 ML VIAL ONE; -PROPOFOL IV EMULSION 10 MG/ML 50 ML VIAL ONE
[2021-12-13] MEDS ORDERED: ALBUTEROL SULF 0.083% NEB SOLN 3 ML NEB NEB STA (22:14)
[2021-12-13] MEDS: LORAZEPAM 1 MG TAB PO PRN (23:00)
[2021-12-13 23:02] LABS: ALBUMIN/GLOBULIN RATIO 1.3 (0.8-2.0); ANION GAP 14.8 mmol/L (8-16); BASOPHILS # (AUTO) 0.1 (0.0-0.1); BASOPHILS % 0.5 % (0.0-1.0); CALCIUM 9.3 mg/dL (8.4-10.2); CREATININE, SERUM 0.64 mg/dL (0.57-1.11); EOSINOPHILS % 0.3 % (0.0-6.0); HEMATOCRIT 42.3 % (34.2-44.1); HEMOGLOBIN 14.5 g/dL (12.0-16.0); LYMPHOCYTES # (AUTO) 2.7 (1.0-3.2); LYMPHOCYTES % 24.7 % (18.0-39.1); MEAN CORPUSCULAR HEMOGLOBIN 34.5 pg (28-32); MEAN CORPUSCULAR HGB CONC 34.3 g/dL (31-35); MEAN CORPUSCULAR VOLUME 100.7 fL (81-99); MONOCYTES # (AUTO) 0.9 (0.2-0.8); MONOCYTES % 8.2 % (4.4-11.3); NEUTROPHILS # (AUTO) 7.1 (2.1-6.9); NEUTROPHILS % 65.7 % (38.7-80.0); PLATELET COUNT 277 x10e3/uL (140-360); POTASSIUM 3.8 mmol/L (3.5-5.1); RED CELL DISTRIBUTION WIDTH 18.8 % (11.7-14.4)
[2021-12-13 23:09] LABS: B-TYPE NATRIURETIC PEPTIDE2 42.3 pg/mL (0-100)
[2021-12-13] MEDS ORDERED: ASPIRIN 81 MG CHEW TAB PO ONE (23:30)
[2021-12-13] MEDS ORDERED: SODIUM CHLORIDE FLUSH 10 ML SYR INJ PRN (23:45)
[2021-12-14] VITALS (14 sets, daily range): BP systolic 89–125; BP diastolic 52–69
[2021-12-14] MEDS ORDERED: SODIUM CHLORIDE 0.9% 1000ML 1,000 ML IV ONE (00:15)
[2021-12-14] MEDS: METHYLPREDNISOLONE SOD SUCC 40 MG/ML VIAL 1ML IV SCH ×4 (00:37→18:11)
[2021-12-14] MEDS: ALBUTEROL/IPRATROPIUM 3 ML NEB NEB SCH ×6 (01:43→22:25)
[2021-12-14 01:49] LABS: ABG HCO3 38 mmol/L (22-26); ABG PCO2 84 mmHg (35-45); ABG PH 7.27 (7.35-7.45); ABG PO2 204 mmHg (80-105)
[2021-12-14 01:50] LABS: ABG TCO2 41
[2021-12-14 02:08] LABS: CREATINE KINASE MB 3.4 ng/mL (0-5.0)
[2021-12-14 07:32] LABS: ANION GAP 13.5 mmol/L (8-16); CALCIUM 8.4 mg/dL (8.4-10.2); CREATININE, SERUM 0.53 mg/dL (0.57-1.11); POTASSIUM 4.5 mmol/L (3.5-5.1)
[2021-12-14 07:40] LABS: CREATINE KINASE MB 3.7 ng/mL (0-5.0)
[2021-12-14 07:42] LABS: BASOPHILS % 0.1 % (0.0-1.0); HEMATOCRIT 28.2 % (34.2-44.1); HEMOGLOBIN 12.6 g/dL (12.0-16.0); LYMPHOCYTES # (AUTO) 0.7 (1.0-3.2); LYMPHOCYTES % 8.9 % (18.0-39.1); MEAN CORPUSCULAR HGB CONC 44.7 g/dL (31-35); MEAN CORPUSCULAR VOLUME 102.9 fL (81-99); MONOCYTES # (AUTO) 0.1 (0.2-0.8); MONOCYTES % 0.7 % (4.4-11.3); NEUTROPHILS # (AUTO) 6.7 (2.1-6.9); NEUTROPHILS % 89.8 % (38.7-80.0); PLATELET COUNT 216 x10e3/uL (140-360); RED BLOOD COUNT 2.74 x10e6/uL (3.6-5.1); RED CELL DISTRIBUTION WIDTH 17.4 % (11.7-14.4)
[2021-12-14] MEDS ORDERED: ONDANSETRON HCL INJ 2MG/ML 2ML 2 MG/ML VIAL IV PRN (08:30)
[2021-12-14] MEDS ORDERED: DOCUSATE SODIUM 100 MG CAP PO PRN (08:30)
[2021-12-14] MEDS ORDERED: ACETAMINOPHEN 325 MG TAB PO PRN (08:30)
[2021-12-14] MEDS ORDERED: BENZONATATE 100 MG CAP PO PRN (08:30)
[2021-12-14] MEDS ORDERED: NICOTINE 14 MG/EA PATCH TOP SCH (09:00)
[2021-12-14] MEDS: MULTIVITAMINS/MINERALS TAB PO SCH (10:28)
[2021-12-14] MEDS: LORATADINE 10 MG TAB PO SCH (10:29)
[2021-12-14] MEDS: LORAZEPAM 1 MG TAB PO PRN (10:33)
[2021-12-14] MEDS: GUAIFENESIN/DEXTROMETHORPHAN LIQD 5 ML UDC NG PRN (10:39)
[2021-12-14] MEDS: NICOTINE 21 MG/EA PATCH TOP SCH (11:58)
[2021-12-14 14:16] LABS: CREATINE KINASE MB 3.7 ng/mL (0-5.0)
[2021-12-15] VITALS (12 sets, daily range): BP systolic 106–162; BP diastolic 48–100
[2021-12-15] MEDS: METHYLPREDNISOLONE SOD SUCC 40 MG/ML VIAL 1ML IV SCH ×4 (00:01→21:52)
[2021-12-15] MEDS: ALBUTEROL/IPRATROPIUM 3 ML NEB NEB SCH ×6 (02:30→23:00)
[2021-12-15] MEDS: LORATADINE 10 MG TAB PO SCH (08:35)
[2021-12-15] MEDS: MULTIVITAMINS/MINERALS TAB PO SCH (08:35)
[2021-12-15] MEDS: NICOTINE 21 MG/EA PATCH TOP SCH (08:35)
[2021-12-15] MEDS ORDERED: LORAZEPAM 0.5 MG TAB PO PRN (09:15)
[2021-12-15 11:27] LABS: CREATINE KINASE MB 3.2 ng/mL (0-5.0)
[2021-12-15] MEDS: GUAIFENESIN/DEXTROMETHORPHAN LIQD 5 ML UDC NG PRN (18:40)
[2021-12-15] MEDS: HEPARIN SOD (PORCINE) 5,000 UNIT/ML VIAL SC SCH (20:36)
[2021-12-16] VITALS (10 sets, daily range): BP systolic 113–134; BP diastolic 51–82
[2021-12-16] MEDS: ALBUTEROL/IPRATROPIUM 3 ML NEB NEB SCH ×6 (03:00→23:30)
[2021-12-16] MEDS: METHYLPREDNISOLONE SOD SUCC 40 MG/ML VIAL 1ML IV SCH ×2 (05:32→22:14)
[2021-12-16 05:47] LABS: ANION GAP 13.3 mmol/L (8-16); CALCIUM 8.9 mg/dL (8.4-10.2); CREATININE, SERUM 0.56 mg/dL (0.57-1.11); POTASSIUM 4.3 mmol/L (3.5-5.1)
[2021-12-16 05:50] LABS: BASOPHILS % 0.1 % (0.0-1.0); HEMATOCRIT 38.1 % (34.2-44.1); HEMOGLOBIN 13.4 g/dL (12.0-16.0); LYMPHOCYTES # (AUTO) 1.4 (1.0-3.2); LYMPHOCYTES % 9.5 % (18.0-39.1); MEAN CORPUSCULAR HEMOGLOBIN 36.2 pg (28-32); MEAN CORPUSCULAR HGB CONC 35.2 g/dL (31-35); MONOCYTES # (AUTO) 0.6 (0.2-0.8); MONOCYTES % 3.8 % (4.4-11.3); NEUTROPHILS # (AUTO) 12.4 (2.1-6.9); PLATELET COUNT 229 x10e3/uL (140-360); RED CELL DISTRIBUTION WIDTH 19.7 % (11.7-14.4)
[2021-12-16] MEDS: MULTIVITAMINS/MINERALS TAB PO SCH (08:14)
[2021-12-16] MEDS: LORATADINE 10 MG TAB PO SCH (08:14)
[2021-12-16] MEDS: HEPARIN SOD (PORCINE) 5,000 UNIT/ML VIAL SC SCH ×2 (08:16→22:15)
[2021-12-16] MEDS: NICOTINE 21 MG/EA PATCH TOP SCH (08:20)
[2021-12-16] MEDS ORDERED: SODIUM CHLORIDE 0.9% 250ML 250 ML ONE (22:26)
[2021-12-17 00:43] VITALS: BP 107/62
[2021-12-17] MEDS: ALBUTEROL/IPRATROPIUM 3 ML NEB NEB SCH ×3 (03:05→09:38)
[2021-12-17 04:00] VITALS: BP 120/63
[2021-12-17 08:53] VITALS: BP 120/63
[2021-12-17] MEDS ORDERED: PREDNISONE20 MG PO (09:32)
[2021-12-17] MEDS ORDERED: NICODERM CQ1 EAC2 TOP (09:32)
[2021-12-17] MEDS ORDERED: AZITHROMYCIN500 MG PO (09:32)
[2021-12-17] MEDS ORDERED: CEPHALEXIN500 MG PO (09:32)
[2021-12-17] MEDS ORDERED: Benzonatate PO (09:32)
[2021-12-17] MEDS ORDERED: LORATADINE10 MG PO (09:32)
[2021-12-17] MEDS: METHYLPREDNISOLONE SOD SUCC 40 MG/ML VIAL 1ML IV SCH (09:51)
[2021-12-17] MEDS: MULTIVITAMINS/MINERALS TAB PO SCH (10:02)
[2021-12-17] MEDS: NICOTINE 21 MG/EA PATCH TOP SCH (10:03)
[2021-12-17] MEDS: LORATADINE 10 MG TAB PO SCH (10:03)
[2021-12-17] MEDS: HEPARIN SOD (PORCINE) 5,000 UNIT/ML VIAL SC SCH (10:22)
[2021-12-17] MEDS ORDERED: ONDANSETRON HCL 4 MG ORAL DISINTEGRATING TAB PO PRN (10:30)
[2021-12-17] MEDS ORDERED: AZITHROMYCIN 250 MG TAB PO SCH (21:00)
== END 2021-12-17 10:54 | disposition home or self-care (01) | DRG 190 ==
LOC: ER 22:06 → ERHOLD 23:57 → ICU 12-14 01:16 → MED/SURG 12-16 07:05 → MED/SURG2 12-16 09:19
PROVIDERS: ADMIT Internal Medicine; ATTEND Internal Medicine
PROC: 5A09357 Assistance with Respiratory Ventilation, Less than 24 Consecutive Hours, Continuous Positive Airway Pressure (ICD-10-PCS; principal; 2021-12-14)
DX: J44.1 Chronic obstructive pulmonary disease with (acute) exacerbation (principal); J96.02 Acute respiratory failure with hypercapnia; Z68.1 Body mass index [BMI] 19.9 or less, adult; Z99.81 Dependence on supplemental oxygen; R63.6 Underweight; F17.210 Nicotine dependence, cigarettes, uncomplicated; Z82.3 Family history of stroke; Z20.822 Contact with and (suspected) exposure to COVID-19
CPT/HCPCS: 36415; 36600; 71045; 80048; 80053; 82550; 82553; 82805; 83605; 83880; 84134; 84484; 85025; 87040; 87070; 87186; 87205; 87400; 93005; 94640; 94660; 94799; 99251; 99284; J0456; J0696; J1644; J2920; J7030; J7050

== ENCOUNTER → 2023-01-14 | Outpatient (REF) | payer MEDICARE ==
[~2023-01-14] MED LIST changes: +AZITHROMYCIN500 MG PO; +Benzonatate PO; +CEPHALEXIN500 MG PO; +LORATADINE10 MG PO; +NICODERM CQ1 EAC2 TOP; +PREDNISONE20 MG PO
== END ==
LOC: MAMMO 11:24
PROVIDERS: ATTEND Internal Medicine
DX: N64.9 Disorder of breast, unspecified (principal)